=== PATIENT | male | born 1945 | race Caucasian/White ===

== ENCOUNTER 2017-11-05 13:27 | Observation (INO) | payer OTHER, MEDICARE ==
[~2017-11-05] VITALS: Ht 172.7 cm; Wt 94.8 kg
[~2017-11-05 13:27] MED LIST: ASPI81 PO; CITA20TA4 PO; FENO145T2 PO; FISHCAP PO; GLUCTAB PO; NAPR220T95 PO; NOVO7030P2 SQ; PROT40TA PO; RISP0.252 PO
[2017-11-05 13:39] VITALS: BP 157/78; PULSE 81; RESP 20; TEMP 97.9; O2SAT 95
[2017-11-05] MEDS ORDERED: OMEP20TA93 PO (14:09)
[2017-11-05] MEDS ORDERED: CYAN1000P IM (14:09)
[2017-11-05] MEDS ORDERED: MELO15TA20 PO (14:09)
[2017-11-05] MEDS ORDERED: POTA10CA PO (14:09)
[2017-11-05] MEDS ORDERED: MAGN500T2 PO (14:09)
[2017-11-05] MEDS ORDERED: ASPI81CH6 CHEW (14:09)
[2017-11-05] MEDS ORDERED: RISP.25 PO (14:09)
[2017-11-05] MEDS ORDERED: GABA300C5 PO (14:09)
[2017-11-05] MEDS ORDERED: METF1000 PO (14:09)
[2017-11-05] MEDS ORDERED: NOVOLOGMXP SQ (14:09)
[2017-11-05] MEDS ORDERED: ESCI20TA PO (14:09)
[2017-11-05] MEDS ORDERED: HYDR25TA5 PO (14:09)
[2017-11-05] MEDS ORDERED: VITA1000 PO (14:09)
[2017-11-05] MEDS ORDERED: MEMA1TAB PO (14:09)
--- NOTE | 2017-11-05 14:29 | PD ---
HPI Chief Complaint: Fall Time Seen by Provider: 14:15 Travel History International Travel<30 days: No Contact w/Intl Traveler<30days: No Traveled to known affect area: No History of Present Illness HPI 72-year-old male has 2 major complaints. He had a fall about 2 weeks ago. He fell forward and landed on his face. Since then he gets an electric sensation on the right parietal area of the scalp. It is often associated with profuse sweating of his head. He also feels like he is having a muscle spasm in his upper chest. He gets a very sharp pain which can either be on the right of the left side which lasts about a minute. It tends to occur at night. He does have a history of coronary artery disease and he says he does not feel like the pain is had with his coronary artery disease. He does have stents in place. He has a history of diabetes for about 20 years. He uses a scooter because he has significant neuropathy. According to his he has vascular dementia. PFSH Past Medical History Arthritis: Yes Asthma: No Autoimmune Disease: No Anxiety: No Depression: Yes Heart Rhythm Problems: No Cancer: No Cardiac Catheterization: Yes (X8, stents ) Cardiovascular Problems: Yes High Cholesterol: Yes Chest Pain: Yes Congestive Heart Failure: No COPD: Yes Coronary Artery Disease: Yes Dementia: Yes Diabetes: Yes Patient Takes Glucophage: Yes Endocrine: Yes Gastrointestinal Disorders: Yes GERD: No Genitourinary: No Hiatal Hernia: No Hypertension: Yes Immune Disorder: No Kidney Stones: Yes Musculoskeletal: Yes Neurologic: Yes (Neuropathy ) Psychiatric: Yes Reproductive: No Respiratory: Yes Sleep Apnea: No Thyroid Disease: No Ulcer: No Tetanus Vaccination: > 5 Years Influenza Vaccination: Yes Past Surgical History Abdominal Surgery: Yes Cardiac Surgery: Yes Cholecystectomy: Yes Coronary Stent: Yes (X 2) Ear Surgery: No Endocrine Surgery: No Eye Surgery: No Genitourinary Surgery: No Gynecologic Surgery: No Oral Surgery: No Thoracic Surgery: No Other Surgery: Yes (Hemmorhoidectomy ) Social History Alcohol Use: No Tobacco Use: Yes (1/2-1 PPD) Substance Use: No Allergies-Medications (Allergen,Severity, Reaction): Coded Allergies: No Known Allergies (Verified Adverse Reaction, Unknown, 11/05/17) Reported Meds & Prescriptions Reported Meds & Active Scripts Active Reported Vitamin D-1000 (Cholecalciferol) 1,000 Unit Tab 1.25 Mg PO DAILY Novolog Mix 70-30 Inj (Insulin Aspart Prota 70%/Aspart 30%) 1,000 Unit/10 Ml Vial 1 Units SQ BID Metformin (Metformin HCl) 1,000 Mg Tab 1,000 Mg PO BIDPC Hydrochlorothiazide 25 Mg Tab 25 Mg PO DAILY Meloxicam 15 Mg Tab 15 Mg PO DAILY Gabapentin 300 Mg Cap 300 Mg PO TID Magnesium Oxide 500 Mg Tab 500 Mg PO DAILY Omeprazole 20 Mg Tab 20 Mg PO DAILY Potassium Chloride ER (Potassium Chloride) 10 Meq Cap 10 Meq PO DAILY Risperdal (Risperidone) 0.25 Mg Tab 0.25 Mg PO DAILY Escitalopram (Escitalopram Oxalate) 20 Mg Tab 20 Mg PO DAILY Aspirin Low Dose (Aspirin) 81 Mg Chew 81 Mg CHEW DAILY Memantine 5 Mg Tab 5 Mg PO BID Cyanocobalamin Inj (Cyanocobalamin) 1,000 Mcg/Ml Inj 1,000 Mcg IM Q30D Review of Systems General / Constitutional: No: Fever, Chills Eyes: No: Diploplia, Blurred Vision HENT: Positive: Headaches Cardiovascular: No: Chest Pain or Discomfort, Palpitations Respiratory: No: Cough, Shortness of Breath Gastrointestinal: No: Vomiting, Diarrhea Genitourinary: No: Urgency Musculoskeletal: No: Myalgias Skin: No Rash, No Itching Neurologic: Positive: Sensory Disturbance, No: Weakness, Dizziness Endocrine: No: Heat Intolerance, Cold Intolerance Hematologic/Lymphatic: No: Easy Bruising Physical Exam Narrative GENERAL: Well-developed male SKIN: Focused skin assessment warm/dry. HEAD: Atraumatic. Normocephalic. No tenderness to palpation of the scalp EYES: Pupils equal and round. No scleral icterus. No injection or drainage. ENT: No nasal bleeding or discharge. Mucous membranes pink and moist. NECK: Trachea midline. No JVD. There is some tenderness in the neck posteriorly CARDIOVASCULAR: Regular rate and rhythm. No murmur appreciated. RESPIRATORY: No accessory muscle use. Clear to auscultation. Breath sounds equal bilaterally. GASTROINTESTINAL: Abdomen soft, non-tender, nondistended. Hepatic and splenic margins not palpable. MUSCULOSKELETAL: No obvious deformities. No clubbing. No cyanosis. No edema. NEUROLOGICAL: Awake and alert. No obvious cranial nerve deficits. Motor grossly within normal limits. Normal speech. PSYCHIATRIC: Appropriate mood and affect; insight and judgment normal. Data Data Last Documented VS Vital Signs Date Time Temp Pulse Resp B/P (MAP) Pulse Ox O2 Delivery O2 Flow Rate FiO2 11/05/17 13:39 97.9 81 20 157/78 (104) 95 Orders Orders Electrocardiogram (11/05/17 14:24) Troponin I (11/05/17 14:24) Ct Brain W/O Iv Contrast(Rout) (11/05/17 14:24) Ct Cerv Spine W/O Contrast (11/05/17 14:24) Complete Blood Count With Diff (11/05/17 14:26) Basic Metabolic Panel (Bmp) (11/05/17 14:26) MDM Medical Decision Making Medical Screen Exam Complete: Yes Emergency Medical Condition: Yes Medical Record Reviewed: Yes Differential Diagnosis Frontal diagnosis includes neuralgia, posttraumatic headache, atypical chest pain Narrative Course I have ordered a CT of the head and neck to assess for possible injury from his fall. EKG and enzymes have been ordered. The patient does not feel like this represents chest pain and describes a very sharp pain which would not be typical of cardiac disease. Orlin De Souza MD November 05, 2017 14:29
[2017-11-05 15:01] LABS: AUTOMATED NEUTROPHIL # 5.4 TH/MM3 (1.8-7.7); BASOPHIL % 0.6 % (0.0-2.0); EOSINOPHIL # 0.3 TH/MM3 (0-0.4); EOSINOPHIL % 4.1 % (0.0-4.0); HEMATOCRIT 41.2 % (39.0-51.0); HEMOGLOBIN 12.9 GM/DL (13.0-17.0); LYMPH % 22.1 % (9.0-44.0); LYMPHOCYTE # 1.8 TH/MM3 (1.0-4.8); MEAN CELL VOLUME 75.9 FL (80.0-100.0); MEAN CORPUSCULAR HEMOGLOBIN 23.7 PG (27.0-34.0); MEAN CORPUSCULAR HGB CONC 31.2 % (32.0-36.0); MEAN PLATELET VOLUME 8.1 FL (7.0-11.0); MONO % 8.4 % (0.0-8.0); MONOCYTE # 0.7 TH/MM3 (0-0.9); NEUT % 64.8 % (16.0-70.0); PLATELET COUNT 207 TH/MM3 (150-450); RED BLOOD COUNT 5.43 MIL/MM3 (4.50-5.90); RED CELL DISTRIBUTION WIDTH 15.6 % (11.6-17.2); WHITE BLOOD COUNT 8.3 TH/MM3 (4.0-11.0)
[2017-11-05 15:22] LABS: CHLORIDE 106 MEQ/L (98-107); SODIUM (NA) 138 MEQ/L (136-145)
[2017-11-05 15:25] LABS: BICARBONATE 25.8 MEQ/L (21.0-32.0); BLOOD UREA NITROGEN 17 MG/DL (7-18); GLUCOSE,RANDOM 146 MG/DL (74-106)
[2017-11-05 15:28] LABS: GLOMERULAR FILTRATION RATE 73 ML/MIN (>89)
[2017-11-05 15:33] LABS: TROPONIN I LESS THAN 0.02 NG/ML (0.02-0.05)
--- NOTE | 2017-11-05 15:46 | RADRPT ---
EXAM DATE/TIME: 11/05/2017 15:25 [facility] COMPARISON: No previous studies available for comparison. INDICATIONS : Trauma, fall two weeks ago. RADIATION DOSE: 60.92 CTDIvol (mGy) MEDICAL HISTORY : Hypertension. Chronic obstructive pulmonary disease. Diabetes mellitus type 2.Cardiac disease. SURGICAL HISTORY : None. ENCOUNTER: Initial ACUITY: 2 weeks PAIN SCALE: 0/10 LOCATION: Right cranial TECHNIQUE: Multiple contiguous axial images were obtained of the head. Using automated exposure control and adj ustment of the mA and/or kV according to patient size, radiation dose was kept as low as reasonably a chievable to obtain optimal diagnostic quality images. DICOM format image data is available electro nically for review and comparison. FINDINGS: CEREBRUM: The ventricles are normal for age. No evidence of midline shift, mass lesion, hemorrhage or acute in farction. No extra-axial fluid collections are seen. POSTERIOR FOSSA: The cerebellum and brainstem are intact. The 4th ventricle is midline. The cerebellopontine angle i s unremarkable. EXTRACRANIAL: The visualized portion of the orbits is intact. SKULL: The calvaria is intact. No evidence of skull fracture. CONCLUSION: Negative for acute process Osman Alcocer MD FACR on November 05, 2017 at 15:42 Board Certified Radiologist. This report was verified electronically.
--- NOTE | 2017-11-05 15:52 | RADRPT ---
EXAM DATE/TIME: 11/05/2017 15:25 [facility] COMPARISON: No previous studies available for comparison. INDICATIONS : Trauma, fall two weeks ago. RADIATION DOSE: 26.49 CTDIvol (mGy) MEDICAL HISTORY : Cardiovascular disease. Hypertension. Chronic obstructive pulmonary disease.Diabetes SURGICAL HISTORY : None. ENCOUNTER: Initial ACUITY: 2 weeks PAIN SCALE: 0/10 LOCATION: Bilateral neck TECHNIQUE: Volumetric scanning of the cervical spine was performed. Multiplanar reconstructions in the sagittal, coronal and oblique axial planes were performed. Using automated exposure control and adjustment o f the mA and/or kV according to patient size, radiation dose was kept as low as reasonably achievable to obtain optimal diagnostic quality images. DICOM format image data is available electronically f or review and comparison. FINDINGS: VERTEBRAE: Normal vertebral body height. ALIGNMENT: No evidence of subluxation. C2-C3: The bony spinal canal is normal in size. No evidence of disc bulge or herniation. The neural forami na are bilaterally patent. C3-C4: Moderate right-sided neural foramina encroachment. No significant spinal stenosis. C4-C5: Moderate uncinate ridging with bilateral foraminal encroachment worse on the left. C5-C6: Mild uncinate ridging. Minimal bilateral neural foramina encroachment. C6-C7: Moderately ridging and moderate bilateral neural foramina encroachment. No cervical spinal stenosis. C7-T1: The bony spinal canal is normal in size. No evidence of disc bulge or herniation. The neural forami na are bilaterally patent. CONCLUSION: Significant degenerative changes, no fracture Osman Alcocer MD FACR on November 05, 2017 at 15:48 Board Certified Radiologist. This report was verified electronically.
--- NOTE | 2017-11-05 16:10 | PD ---
Physical Exam Narrative GENERAL: Well-nourished, well-developed patient in no apparent distress. SKIN: Warm and dry. HEAD: Atraumatic. Normocephalic. EYES: Pupils equal and round. No scleral icterus. No injection or drainage. ENT: No nasal bleeding or discharge. Mucous membranes pink and moist. NECK: Trachea midline. No JVD. CARDIOVASCULAR: Regular rate and rhythm. no rubs or gallops RESPIRATORY: No accessory muscle use. Clear to auscultation. Breath sounds equal bilaterally. GASTROINTESTINAL: Abdomen soft, non-tender, nondistended. No rebound or guarding MUSCULOSKELETAL: Extremities without clubbing, cyanosis, or edema. No obvious deformities. NEUROLOGICAL: Awake and alert. No obvious cranial nerve deficits. Motor grossly within normal limits. Five out of 5 muscle strength in the arms and legs. Normal speech. PSYCHIATRIC: Appropriate mood and affect; insight and judgment normal. Data Data Last Documented VS Vital Signs Date Time Temp Pulse Resp B/P (MAP) Pulse Ox O2 Delivery O2 Flow Rate FiO2 11/05/17 13:39 97.9 81 20 157/78 (104) 95 Orders Orders Electrocardiogram (11/05/17 14:24) Ct Brain W/O Iv Contrast(Rout) (11/05/17 14:24) Ct Cerv Spine W/O Contrast (11/05/17 14:24) Complete Blood Count With Diff (11/05/17 14:26) Basic Metabolic Panel (Bmp) (11/05/17 14:26) Troponin I (11/05/17 14:26) Labs Laboratory Tests Test 11/05/17 14:35 White Blood Count 8.3 TH/MM3 Red Blood Count 5.43 MIL/MM3 Hemoglobin 12.9 GM/DL Hematocrit 41.2 % Mean Corpuscular Volume 75.9 FL Mean Corpuscular Hemoglobin 23.7 PG Mean Corpuscular Hemoglobin Concent 31.2 % Red Cell Distribution Width 15.6 % Platelet Count 207 TH/MM3 Mean Platelet Volume 8.1 FL Neutrophils (%) (Auto) 64.8 % Lymphocytes (%) (Auto) 22.1 % Monocytes (%) (Auto) 8.4 % Eosinophils (%) (Auto) 4.1 % Basophils (%) (Auto) 0.6 % Neutrophils # (Auto) 5.4 TH/MM3 Lymphocytes # (Auto) 1.8 TH/MM3 Monocytes # (Auto) 0.7 TH/MM3 Eosinophils # (Auto) 0.3 TH/MM3 Basophils # (Auto) 0.0 TH/MM3 CBC Comment AUTO DIFF Differential Comment AUTO DIFF CONFIRMED Blood Urea Nitrogen 17 MG/DL Creatinine 1.00 MG/DL Random Glucose 146 MG/DL Calcium Level 9.0 MG/DL Sodium Level 138 MEQ/L Potassium Level 3.9 MEQ/L Chloride Level 106 MEQ/L Carbon Dioxide Level 25.8 MEQ/L Anion Gap 6 MEQ/L Estimat Glomerular Filtration Rate 73 ML/MIN Troponin I LESS THAN 0.02 NG/ML [facility] Medical Record Reviewed: Yes Supervised Visit with ANGEL: No Interpretation(s) EKG shows a normal sinus rhythm, 74 bpm, normal intervals, no evidence of any ST elevation [place] pattern currently. Narrative Course CBC shows no evidence of any leukocytosis, no anemia, no evidence of any left shift, and normal platelet count. Electrolytes are all within normal limits, except for random glucose of 146, first set of cardiac enzymes negative Head CT is read by the radiologist as negative for acute process Cervical CT read by radiologist as significant degenerative changes but without fracture. Although the patient's description of the chest pain is atypical, the patient does have risk factors such as multiple cardiac stents, hypercholesterolemia, hypertension, diabetes and smoking. Therefore I believe it prudent to have the patient advised to come into at least the chest pain center for rule out. Diagnosis Primary Impression: Atypical chest pain rule out [place] Additional Impression: Cephalgia Admitting Information Admitting Physician Requests: Observation Aston Treviño MD November 05, 2017 16:10
[2017-11-05 16:20] VITALS: BP 134/92; PULSE 75; RESP 14; O2SAT 95
[2017-11-05] MEDS: INSULIN ASPART SUPPLEMENTAL SCALE SQ SCH ×2 (17:00→21:00)
[2017-11-05] MEDS ORDERED: SODIUM CHLORIDE 0.9% FLUSH 10 ML FLUSH IV FLUSH PRN (17:00)
[2017-11-05] MEDS ORDERED: ACETAMINOPHEN 325 MG TAB PO PRN ×2 (17:00)
[2017-11-05] MEDS ORDERED: ONDANSETRON HCL 4 MG/2 ML VIAL IVP PRN (17:00)
[2017-11-05] MEDS ORDERED: NALOXONE HCL 0.4 MG/ML AMP IV PUSH PRN (17:00)
--- NOTE | 2017-11-05 17:06 | EKG ---
Date Performed: 11/05/2017 Time Performed: 14:34:26 PTAGE: 72 years EKG: Sinus rhythm NORMAL ECG PREVIOUS TRACING : 03/01/2013 11.33 Since the previous tracing, no significant change noted DOCTOR: Norris Steward Interpretating Date/Time 11/05/2017 17:04:17
[2017-11-05] MEDS ORDERED: MORPHINE SULFATE 4 MG/ML INJ IV PUSH PRN (17:15)
[2017-11-05 18:16] VITALS: PULSE 83
[2017-11-05] MEDS: GABAPENTIN 300 MG CAP PO SCH (18:36)
[2017-11-05] MEDS: HEPARIN SODIUM - SQ 10,000 UNITS/ML VIAL SQ SCH (18:36)
[2017-11-05 20:00] VITALS: BP 150/100; PULSE 79; PULSE 91; RESP 20; TEMP 97.9; O2SAT 93
[2017-11-05 20:57] VITALS: O2SAT 95
[2017-11-05] MEDS: MEMANTINE HCL 5 MG TAB PO SCH (21:29)
[2017-11-05] MEDS: SODIUM CHLORIDE 0.9% FLUSH 10 ML FLUSH IV FLUSH SCH (21:29)
[2017-11-05] MEDS: DOCUSATE SODIUM 50 MG/SENNA 8.6 MG TAB PO SCH (21:29)
[2017-11-06] VITALS: BP 133/64; PULSE 68; RESP 20; TEMP 97.4; O2SAT 92
[2017-11-06] MEDS: HEPARIN SODIUM - SQ 10,000 UNITS/ML VIAL SQ SCH ×2 (01:31→11:50)
[2017-11-06 04:00] VITALS: BP 125/78; PULSE 72; RESP 20; TEMP 97.1; O2SAT 93
[2017-11-06 07:22] LABS: AUTOMATED NEUTROPHIL # 4.4 TH/MM3 (1.8-7.7); BASOPHIL % 0.5 % (0.0-2.0); EOSINOPHIL # 0.4 TH/MM3 (0-0.4); EOSINOPHIL % 5.4 % (0.0-4.0); HEMATOCRIT 37.1 % (39.0-51.0); HEMOGLOBIN 11.9 GM/DL (13.0-17.0); LYMPH % 25.3 % (9.0-44.0); LYMPHOCYTE # 1.9 TH/MM3 (1.0-4.8); MEAN CELL VOLUME 75.9 FL (80.0-100.0); MEAN CORPUSCULAR HEMOGLOBIN 24.3 PG (27.0-34.0); MEAN CORPUSCULAR HGB CONC 32.1 % (32.0-36.0); MEAN PLATELET VOLUME 7.9 FL (7.0-11.0); MONO % 9.7 % (0.0-8.0); MONOCYTE # 0.7 TH/MM3 (0-0.9); NEUT % 59.1 % (16.0-70.0); PLATELET COUNT 160 TH/MM3 (150-450); RED BLOOD COUNT 4.89 MIL/MM3 (4.50-5.90); RED CELL DISTRIBUTION WIDTH 14.8 % (11.6-17.2); WHITE BLOOD COUNT 7.4 TH/MM3 (4.0-11.0)
[2017-11-06 07:27] LABS: CHLORIDE 108 MEQ/L (98-107); SODIUM (NA) 140 MEQ/L (136-145)
[2017-11-06 07:36] LABS: ALBUMIN 2.9 GM/DL (3.4-5.0); BICARBONATE 25.7 MEQ/L (21.0-32.0); CALCIUM 8.3 MG/DL (8.5-10.1); GLUCOSE,RANDOM 165 MG/DL (74-106)
[2017-11-06 07:37] LABS: BLOOD UREA NITROGEN 15 MG/DL (7-18)
[2017-11-06 07:39] LABS: ALT (GPT) 26 U/L (12-78); AST (GOT) 23 U/L (15-37)
[2017-11-06 07:40] LABS: CREATININE 0.91 MG/DL (0.60-1.30); GLOMERULAR FILTRATION RATE 81 ML/MIN (>89)
[2017-11-06 07:41] LABS: TOTAL BILIRUBIN ADULT 0.7 MG/DL (0.2-1.0); TOTAL PROTEIN 6.5 GM/DL (6.4-8.2)
[2017-11-06 07:42] LABS: ALKALINE PHOSPHATASE 73 U/L (45-117)
--- NOTE | 2017-11-06 07:53 | HHI.HP ---
[facility] Service [facility] Primary Care Physician [facility] Admission Diagnosis CP R/O VT Diagnoses: (1) Chest pain Diagnosis: Principal Chief Complaint: Paresthesia of the scalp Travel History International Travel<30 Days: No Contact w/Intl Traveler <30 Da: No Traveled to Known Affected Are: No History of Present Illness 72-year-old male with known history of hypertension, hyperlipidemia, coronary disease, diabetes, recent fall, peripheral neuropathy who presented to the emergency department for evaluation of paresthesia of the right side of his scalp. Patient indicates that 2 weeks ago he had a fall when he was bending over he lost his balance and his body weight forced him to move forward a few steps and then coming to rest on the edge of the bed. Patient hit the right side of his head without any loss of consciousness. Patient did injure his right lower extremity with his right ankle. Patient did go to hospital in [place] and they did an evaluation to rule out any acute abnormality and patient was discharged home. Since then the patient states that he been experiencing some tingling sensation in the right side of his head. He states that whenever he goes outside he starts developing a few sweating of his scalp. Because of symptoms did not improve he went to the emergency department for evaluation. Patient has CT of the brain as well as CT of the cervical spine without any acute finding. Incidentally the patient indicated that he is also been experiencing chest discomfort over the last 3 weeks. He states that has been intermittent located in the center part of his chest he describes as a squeezing type sensation that lasts for approximately 1-1-1/2 minutes at a time. Patient denies any associated nausea, vomiting, diaphoresis, shortness of breath, dyspnea, lightheadedness, dizziness. Patient has not had any chest discomfort in over 48 hours. Patient does go to Dr. Skinner in [place] for cardiology. He does not recall the last time he had a cardiac workup or stress test. Because the patient increased risk factors to the ER physician recommended the patient be observed in the hospital for further evaluation and management. Presently the patient is asymptomatic. Review of Systems Cardiovascular: COMPLAINS OF: Chest pain Neurologic: COMPLAINS OF: Paresthesias Except as stated in HPI: all other systems reviewed are Neg Past Family Social History Past Medical History Hypertension Hyperlipidemia Coronary disease Diabetes Diabetic neuropathy History of tobacco use History of nephrolithiasis Past Surgical History Cholecystectomy Hemorrhoidectomy Tonsillectomy Cystoscopies Cardiac catheterization with stenting Reported Medications Reported Meds & Active Scripts Active Reported Vitamin D-1000 (Cholecalciferol) 1,000 Unit Tab 1.25 Mg PO DAILY Novolog Mix 70-30 Inj (Insulin Aspart Prota 70%/Aspart 30%) 1,000 Unit/10 Ml Vial 1 Units SQ BID Metformin (Metformin HCl) 1,000 Mg Tab 1,000 Mg PO BIDPC Hydrochlorothiazide 25 Mg Tab 25 Mg PO DAILY Meloxicam 15 Mg Tab 15 Mg PO DAILY Gabapentin 300 Mg Cap 300 Mg PO TID Magnesium Oxide 500 Mg Tab 500 Mg PO DAILY Omeprazole 20 Mg Tab 20 Mg PO DAILY Potassium Chloride ER (Potassium Chloride) 10 Meq Cap 10 Meq PO DAILY Risperdal (Risperidone) 0.25 Mg Tab 0.25 Mg PO DAILY Escitalopram (Escitalopram Oxalate) 20 Mg Tab 20 Mg PO DAILY Aspirin Low Dose (Aspirin) 81 Mg Chew 81 Mg CHEW DAILY Memantine 5 Mg Tab 5 Mg PO BID Cyanocobalamin Inj (Cyanocobalamin) 1,000 Mcg/Ml Inj 1,000 Mcg IM Q30D Allergies: Coded Allergies: No Known Allergies (Verified Allergy, Unknown, 11/05/17) Family History Reviewed and significant for mother at age 47 from renal failure, father in his 90s he had colon cancer Social History Patient quit smoking over 20 years ago, prior to that he smoked 2-3 pack of cigarettes a day since he was 14 years old. Patient denies any alcohol or illicit drug use Physical Exam Vital Signs Vital Signs Date Time Temp Pulse Resp B/P (MAP) Pulse Ox O2 Delivery O2 Flow Rate FiO2 11/06/17 04:00 97.1 72 20 125/78 (94) 93 11/06/17 00:00 97.4 68 20 133/64 (87) 92 11/05/17 20:57 95 21 11/05/17 20:00 97.9 91 20 150/100 (117) 93 11/05/17 20:00 79 11/05/17 18:16 83 11/05/17 17:30 11/05/17 16:20 75 14 134/92 (106) 95 Room Air 11/05/17 13:39 97.9 81 20 157/78 (104) 95 Physical Exam GENERAL: Well-developed, well-nourished, in no acute distress. alert and orientated HEENT: Head is normocephalic without any lesions or masses noted. Facial features are symmetric. Eyes: Pupils equal round reactive to light. Extraocular muscles are intact. Conjunctivae were clear. Oropharyngeal: Pharynx without any erythema edema. Tongue is midline without deviation. Buccal mucosa is moist without any masses or lesions NECK: Supple without any masses. Trachea midline no deviation. No JVD, no bruits are appreciated CARDIAC: Regular rhythm, regular rate. S1/S2 are heard. No murmurs gallops or rubs. LUNGS: Clear to auscultation bilaterally. No wheeze, rhonchi or rales. No use of accessory muscles on inspiration or expiration. ABDOMEN: Soft, nontender. Nondistended. Bowel sounds heard in all 4 quadrants. No organomegaly or masses. Negative rebound, negative guarding EXTREMITIES: No edema, pulses are equal bilaterally. No cyanosis or clubbing NEUROLOGY: Mood and affect appear appropriate. Cranial nerves II through XII grossly intact. Muscle strength 5/5 in upper and lower extremities bilaterally. Deep tendon reflexes are 2+ in upper and lower extremities bilaterally. Laboratory Laboratory Tests Test 11/05/17 14:35 11/05/17 20:50 11/06/17 01:40 11/06/17 06:18 White Blood Count 8.3 7.4 Red Blood Count 5.43 4.89 Hemoglobin 12.9 11.9 Hematocrit 41.2 37.1 Mean Corpuscular Volume 75.9 75.9 Mean Corpuscular Hemoglobin 23.7 24.3 Mean Corpuscular Hemoglobin Concent 31.2 32.1 Red Cell Distribution Width 15.6 14.8 Platelet Count 207 160 Mean Platelet Volume 8.1 7.9 Neutrophils (%) (Auto) 64.8 59.1 Lymphocytes (%) (Auto) 22.1 25.3 Monocytes (%) (Auto) 8.4 9.7 Eosinophils (%) (Auto) 4.1 5.4 Basophils (%) (Auto) 0.6 0.5 Neutrophils # (Auto) 5.4 4.4 Lymphocytes # (Auto) 1.8 1.9 Monocytes # (Auto) 0.7 0.7 Eosinophils # (Auto) 0.3 0.4 Basophils # (Auto) 0.0 0.0 CBC Comment AUTO DIFF AUTO DIFF Differential Comment AUTO DIFF CONFIRMED Blood Urea Nitrogen 17 15 Creatinine 1.00 0.91 Random Glucose 146 165 Calcium Level 9.0 8.3 Sodium Level 138 140 Potassium Level 3.9 3.9 Chloride Level 106 108 Carbon Dioxide Level 25.8 25.7 Anion Gap 6 6 Estimat Glomerular Filtration Rate 73 81 Troponin I LESS THAN 0.02 LESS THAN 0.02 LESS THAN 0.02 Total Protein 6.5 Albumin 2.9 Alkaline Phosphatase 73 Aspartate Amino Transf (AST/SGOT) 23 Alanine Aminotransferase (ALT/SGPT) 26 Total Bilirubin 0.7 Result Diagram: 11/06/1761711/06/17617 Imaging Last Impressions Head CT 11/05/171423 Signed Impressions: Service Date/Time: Sunday, November 05, 2017 15:25 - CONCLUSION: Negative for acute process Osman Alcocer MD FACR Cervical Spine CT 11/05/171423 Signed Impressions: Service Date/Time: Sunday, November 05, 2017 15:25 - CONCLUSION: Significant degenerative changes, no fracture Osman Alcocer MD FACR Caprini VTE Risk Assessment Caprini VTE Risk Assessment: Mod/High Risk (score >= 2) Caprini Risk Assessment Model Point Value = 1 Point Value = 2 Point Value = 3 Point Value = 5 Age 41-60 Minor surgery BMI > 25 kg/m2 Swollen legs Varicose veins or History of unexplained or recurrent spontaneous Oral contraceptives or hormone replacement Sepsis (< 1 month) Serious lung disease, including pneumonia (< 1 month) Abnormal pulmonary function Acute myocardial infarction Congestive heart failure (< 1 month) History of inflammatory bowel disease Medical patient at bed rest Age 61-74 Arthroscopic surgery Major open surgery (> 45 min) Laparoscopic surgery (> 45 min) Malignancy Confined to bed (> 72 hours) Immobilizing plaster cast Central venous access Age >= 75 History of VTE Family history of VTE Factor V Leiden Prothrombin [id number] Lupus anticoagulant Anticardiolipin antibodies Elevated serum homocysteine Heparin-induced thrombocytopenia Other congenital or acquired thrombophilia Stroke (< 1 month) Elective arthroplasty Hip, pelvis, or leg fracture Acute spinal cord injury (< 1 month) Prophylaxis Regimen Total Risk Factor Score Risk Level Prophylaxis Regimen 0-1 Low Early ambulation 2 Moderate Order ONE of the following: *Sequential Compression Device (SCD) *Heparin 5000 units SQ BID 3-4 Higher Order ONE of the following medications: *Heparin 5000 units SQ TID *Enoxaparin/Lovenox 40 mg SQ daily (WT < 150 kg, CrCl > 30 mL/min) *Enoxaparin/Lovenox 30 mg SQ daily (WT < 150 kg, CrCl > 10-29 mL/min) *Enoxaparin/Lovenox 30 mg SQ BID (WT < 150 kg, CrCl > 30 mL/min) AND/OR *Sequential Compression Device (SCD) 5 or more Highest Order ONE of the following medications: *Heparin 5000 units SQ TID (Preferred with Epidurals) *Enoxaparin/Lovenox 40 mg SQ daily (WT < 150 kg, CrCl > 30 mL/min) *Enoxaparin/Lovenox 30 mg SQ daily (WT < 150 kg, CrCl > 10-29 mL/min) *Enoxaparin/Lovenox 30 mg SQ BID (WT < 150 kg, CrCl > 30 mL/min) AND *Sequential Compression Device (SCD) Assessment and Plan Assessment and Plan Chest pain, atypical -Patient does have increased risk factors include age, male, hypertension, hyperlipidemia, coronary disease, diabetes, history of tobacco use -Patient has been ruled out for acute coronary event with serial cardiac enzymes are negative -Serial EKGs were reviewed by myself which indicated normal sinus rhythm without any changes -Myocardial perfusion study was performed and indicated no signs of ischemia, low risk -Continue aspirin, beta-fish, LILLI inhibitor, nitroglycerin as needed -Monitor telemetry Hypertension, hyperlipidemia, coronary artery disease -Home medications have been continued Diabetes -Diabetic diet -Accu-Cheks with sliding scale insulin Peripheral neuropathy -Home medications continued DVT prevention -Subcutaneous heparin Discharge disposition Discharge home in stable condition Activity: Ad mariann. Diet: Diabetic diet Medication per medication reconciliation Follow-up with primary medical doctor in 1 week Rubens Rhodes November 06, 2017 07:53
[2017-11-06 08:00] VITALS: BP 172/83; PULSE 72; RESP 19; TEMP 98.2; O2SAT 95
[2017-11-06] MEDS: INSULIN ASPART SUPPLEMENTAL SCALE SQ SCH ×2 (08:00→11:50)
[2017-11-06] MEDS: GABAPENTIN 300 MG CAP PO SCH ×2 (08:10→11:52)
[2017-11-06] MEDS: MEMANTINE HCL 5 MG TAB PO SCH (08:11)
[2017-11-06] MEDS: DOCUSATE SODIUM 50 MG/SENNA 8.6 MG TAB PO SCH (08:11)
[2017-11-06] MEDS: SODIUM CHLORIDE 0.9% FLUSH 10 ML FLUSH IV FLUSH SCH (08:12)
[2017-11-06 08:30] VITALS: O2SAT 95
[2017-11-06] MEDS ORDERED: risperiDONE 0.25 MG TAB PO SCH (09:00)
[2017-11-06] MEDS ORDERED: PANTOPRAZOLE SOD 20 MG DELAYED RELEASE TAB PO SCH (09:00)
[2017-11-06] MEDS ORDERED: POTASSIUM CHLORIDE 10 MEQ CONTROLLED RELEASE TAB PO SCH (09:00)
[2017-11-06] MEDS ORDERED: ESCITALOPRAM OXALATE 20 MG TAB PO SCH (09:00)
[2017-11-06] MEDS ORDERED: ASPIRIN 81 MG CHEW TAB CHEW SCH (09:00)
[2017-11-06] MEDS ORDERED: HYDROCHLOROTHIAZIDE 25 MG TAB PO SCH (09:00)
[2017-11-06] MEDS ORDERED: REGADENOSON INJ 0.4 MG/5 ML SYR IV ONE (10:41)
[2017-11-06] MEDS ORDERED: MAGNESIUM OXIDE 400 MG TAB PO SCH (11:00)
--- NOTE | 2017-11-06 11:52 | RADRPT ---
EXAM DATE/TIME: 11/06/2017 10:09 [place] COMPARISON: No previous studies available for comparison. INDICATIONS : Angina. Coronary artery disease. DOSE: 25.9 mCi Tc99m Myoview at stress. 8.2 mCi Tc99m Myoview at rest. 0.4 mg Lexiscan STRESS SYMPTOMS: Chest pressure and headache. EJECTION FRACTION: 56% MEDICAL HISTORY : Hypertension. Diabetes mellitus type 2. Chronic obstructive pulmonary disease. SURGICAL HISTORY : Coronary artery stent. Cholecystectomy. ENCOUNTER: Initial ACUITY: 2 days PAIN SCALE: 2/10 LOCATION: Left chest TECHNIQUE: The patient underwent pharmacologic stress with infusion of prescribed dose. Continuous ECG tracing was monitored during stress. Gated SPECT imaging was performed after stress and conventional SPECT i maging was performed at rest. The examination was performed on a SPECT/CT scanner, both attenuation and non-corrected datasets were reviewed. FINDINGS: DISTRIBUTION: The maximum perfused segment at stress is in the lateral wall. PERFUSION STUDY: The pattern of perfusion at stress is within normal limits. GATED STUDY: There is intact wall motion and thickening without hypokinetic or dyskinetic segments. CONCLUSION: No evidence of fixed or reversible perfusion defects. RISK CATEGORY: Low risk Blanka Nuñez MD on November 06, 2017 at 11:47 Board Certified Radiologist. This report was verified electronically.
--- NOTE | 2017-11-06 12:00 | HHI.DCPOC ---
Discharge Care Plan Diagnosis: (1) Chest pain Goals to Promote Your Health * To prevent worsening of your condition and complications * To maintain your health at the optimal level Directions to Meet Your Goals Take your medications as prescribed Follow your dietary instruction Follow activity as directed Keep your appointments as scheduled Take your immunizations and boosters as scheduled If your symptoms worsen call your PCP, if no PCP go to Urgent Care Center or Emergency Room Smoking is Dangerous to Your Health. Avoid second hand smoke Call the 24-hour hour crisis hotline for domestic abuse at [facility] November 06, 2017 12:00
--- NOTE | 2017-11-06 18:19 | EKG ---
Date Performed: 11/06/2017 Time Performed: 01:34:42 PTAGE: 72 years EKG: Sinus rhythm NORMAL ECG PREVIOUS TRACING : 11/05/2017 20.39 Since the previous tracing, no significant change noted DOCTOR: Norris Steward Interpretating Date/Time 11/06/2017 18:17:49
--- NOTE | 2017-11-06 18:23 | EKG ---
Date Performed: 11/05/2017 Time Performed: 20:39:25 PTAGE: 72 years EKG: Sinus rhythm NORMAL ECG PREVIOUS TRACING : 11/05/2017 14.34 Since the previous tracing, no significant change noted DOCTOR: Norris Steward Interpretating Date/Time 11/06/2017 18:23:02
--- NOTE | 2017-11-07 12:56 | TR ---
Date Performed: 11/06/2017 Time Performed: 10:52:56 DOCTOR: Sathya Nunes DRUG LIST: CLINICAL HISTORY: REASON FOR TEST: REASON FOR ENDING: OBSERVATION: CONCLUSION: Patient exercised using the Shaji protocol. No electrocardiographic changes were see n to suggest ischemia. Hemodynamic response to exercise was normal. No significant arrhythmia was pre sent. COMMENTS:
== END 2017-11-06 13:41 | disposition home or self-care (01) ==
LOC: PHED 13:27 → PHEDA 16:35 → PH3A 17:40
PROVIDERS: ADMIT Hospitalist; ATTEND Hospitalist
DX: R07.89 Other chest pain (principal); I10 Essential (primary) hypertension; I25.10 Atherosclerotic heart disease of native coronary artery without angina pectoris; F03.90 Unspecified dementia, unspecified severity, without behavioral disturbance, psychotic disturbance, mood disturbance, and anxiety; J44.9 Chronic obstructive pulmonary disease, unspecified; E78.5 Hyperlipidemia, unspecified; E11.42 Type 2 diabetes mellitus with diabetic polyneuropathy; Z72.0 Tobacco use; Z95.5 Presence of coronary angioplasty implant and graft; Z87.442 Personal history of urinary calculi; Z79.84 Long term (current) use of oral hypoglycemic drugs; Z79.82 Long term (current) use of aspirin; W19.XXXA Unspecified fall, initial encounter; Z80.0 Family history of malignant neoplasm of digestive organs
CPT/HCPCS: 70450; 72125; 78452; 80048; 80053; 82948; 84484; 85025; 93005; 93017; 96372; 99285; A9502; G0378; J1644; J1815; J2785